=== PATIENT | female | born 1990 | race Caucasian/White ===

== ENCOUNTER 2017-12-24 04:35 | Inpatient (IN) | payer MEDICAID ==
[2017-12-24] MEDS ORDERED: BUTORPHANOL 2 MG INJ IV (05:00)
[2017-12-24] MEDS ORDERED: CARBOPROST 250 MCG INJ IM ×2 (05:00→10:00)
[2017-12-24] MEDS ORDERED: LIDOCAINE 1% (MPF) 30 ML INJ INJ (05:00)
[2017-12-24] MEDS ORDERED: OXYTOCIN 30 UNITS/LR 500 ML IV ×2 (05:00→10:00)
[2017-12-24] MEDS ORDERED: IBUPROFEN 600 MG TAB PO (05:00)
[2017-12-24] MEDS ORDERED: MISOPROSTOL 200 MCG TAB PR ×2 (05:00→10:00)
[2017-12-24] MEDS: LACTATED RINGER'S 1,000 ML IV* ×2 (05:26→06:43)
[2017-12-24] MEDS: AMPICILLIN 2 GM/NS (PMX) 100 ML IV (05:26)
[2017-12-24 05:34] LABS: ADD MAN DIFF? NO
[2017-12-24 05:49] LABS: WHITE BLOOD COUNT 11.3 10^3/ul (4.8-10.8)
[2017-12-24 05:49] LABS: BASOPHILS % 0.2 % (0.0-2.0); EOSINOPHILS # 0.1 10^3/ul (0.0-0.5); HEMATOCRIT 37.2 % (37.0-47.0); HEMOGLOBIN 12.7 g/dl (12.0-16.0); LYMPHOCYTES # 2.8 10^3/ul (0.8-2.9); LYMPHOCYTES % 24.6 % (15.0-51.0); MEAN CORPUSCULAR HEMOGLOBIN 28.9 pg (29.0-33.0); MEAN CORPUSCULAR HGB CONC 34.1 g/dl (32.0-37.0); MEAN CORPUSCULAR VOLUME 84.7 fl (82.0-101.0); MEAN PLATELET VOLUME 11.4 fl (7.4-10.4); MONOCYTE # 0.9 10^3/ul (0.3-0.9); MONOCYTES % 7.9 % (0.0-11.0); NEUTROPHIL # 7.4 10^3/ul (1.6-7.5); NEUTROPHILS % 65.9 % (39.0-77.0); PLATELET COUNT 311 10^3/UL (140-415); RED BLOOD COUNT 4.39 10^6/ul (4.20-5.40); RED CELL DISTRIBUTION WIDTH 13.3 % (11.5-14.5)
[2017-12-24 05:59] LABS: PROTIME 12.2 Sec (11.9-14.9)
[2017-12-24] MEDS ORDERED: FENTAnyl 2MCG/ML-ROPIV 0.2% 100 ML (06:18)
[2017-12-24 06:31] LABS: HEPATITIS B SURFACE ANTIGEN NEGATIVE (NEGATIVE)
[2017-12-24 07:19] LABS: PARTIAL THROMBOPLASTIN TIME 28.9 Sec (23.0-35.0)
[2017-12-24] MEDS ORDERED: AMPICILLIN 1 GM/NS (PMX) 50 ML IV (09:00)
[2017-12-24] MEDS: METHYLERGONOVINE 0.2 MG INJ IM (09:31)
[2017-12-24] MEDS: OXYTOCIN 30 UNITS/LR 500 ML IV ×2 (09:41→09:52)
[2017-12-24] MEDS ORDERED: DEXTROSE 5%-LR 1,000 ML IV (09:47)
[2017-12-24] MEDS ORDERED: LACTATED RINGER'S 1,000 ML IV* (09:47)
[2017-12-24] MEDS ORDERED: ZOLPIDEM 5 MG TAB PO (10:00)
[2017-12-24] MEDS ORDERED: OXYCODONE/ASPIRIN (4.88/325) TAB PO (10:00)
[2017-12-24] MEDS ORDERED: DIPHENHYDRAMINE 50 MG INJ IV (10:00)
[2017-12-24] MEDS ORDERED: SENNA/DOCUSATE NA (8.6MG/50MG) TAB PO (10:00)
[2017-12-24] MEDS ORDERED: METHYLERGONOVINE 0.2 MG INJ IM (10:00)
[2017-12-24] MEDS ORDERED: ONDANSETRON 4 MG INJ IV (10:00)
[2017-12-24] MEDS ORDERED: DIBUCAINE 1% 30 GM OINT PR (10:00)
[2017-12-24] MEDS: IBUPROFEN 600 MG TAB PO ×3 (12:39→23:53)
[2017-12-24] MEDS: BENZOCAINE 20% 56 ML SPRAY TOP (12:39)
[2017-12-24] MEDS: LANOLIN 7 GM TUBE TOP (12:40)
[2017-12-24] MEDS: WITCH HAZEL/GLYCERIN PAD PR (12:40)
[2017-12-24 15:16] LABS: RAPID PLASMA REAGIN NONREACTIVE (NR)
[2017-12-25] MEDS: IBUPROFEN 600 MG TAB PO ×4 (00:30→17:53)
[2017-12-25 08:49] LABS: ADD MAN DIFF? NO
[2017-12-25 08:52] LABS: BASOPHILS % 0.2 % (0.0-2.0); EOSINOPHILS % 0.2 % (0.0-7.0); HEMATOCRIT 33.7 % (37.0-47.0); HEMOGLOBIN 11.4 g/dl (12.0-16.0); LYMPHOCYTES # 2.4 10^3/ul (0.8-2.9); LYMPHOCYTES % 18.2 % (15.0-51.0); MEAN CORPUSCULAR HEMOGLOBIN 29.1 pg (29.0-33.0); MEAN CORPUSCULAR HGB CONC 33.8 g/dl (32.0-37.0); MEAN PLATELET VOLUME 10.9 fl (7.4-10.4); MONOCYTE # 0.9 10^3/ul (0.3-0.9); MONOCYTES % 7.2 % (0.0-11.0); NEUTROPHIL # 9.5 10^3/ul (1.6-7.5); NEUTROPHILS % 73.8 % (39.0-77.0); PLATELET COUNT 273 10^3/UL (140-415); RED BLOOD COUNT 3.92 10^6/ul (4.20-5.40); RED CELL DISTRIBUTION WIDTH 13.7 % (11.5-14.5)
[2017-12-25 08:52] LABS: WHITE BLOOD COUNT 12.9 10^3/ul (4.8-10.8)
[2017-12-26] MEDS: IBUPROFEN 600 MG TAB PO ×3 (00:18→12:39)
[2017-12-26] MEDS ORDERED: MEASLES,MUMPS,RUBELLA VACCINE INJ SC* (09:00)
[2017-12-26] MEDS: ACETAMINOPHEN 325 MG TAB PO (09:52)
[2017-12-26] MEDS: DIPHTH/TET/ACEL PERTUSS (ADULT) 0.5 ML VIAL IM* (11:18)
== END 2017-12-26 13:15 | disposition home or self-care (01) | DRG 775 ==
LOC: OBT 04:35 → L-D 04:35 → PP1 12-25 20:46 → L-D 05:11 → OBT 04:48 → L-D 04:48 → PP1 12:19
PROVIDERS: Obstetrics & Gynecology
PROC: 10D07Z6 Extraction of Products of Conception, Vacuum, Via Natural or Artificial Opening (ICD-10-PCS; principal; 2017-12-24)
PROC: 3E033VJ Introduction of Other Hormone into Peripheral Vein, Percutaneous Approach (ICD-10-PCS; 2017-12-24)
DX: O24.429 Gestational diabetes mellitus in childbirth, unspecified control (principal); O76 Abnormality in fetal heart rate and rhythm complicating labor and delivery; Z3A.38 38 weeks gestation of pregnancy; Z37.0 Single live birth
CPT/HCPCS: 62319; 85025; 85610; 85730; 86592; 86850; 86900; 86901; 87340; 90715; 99464

== ENCOUNTER 2018-03-12 10:26 | Observation (INO) | payer MEDICAID ==
[~2018-03-12 10:26] MED LIST: CEFAZOLIN 1 GM INJ; GLYCOPYRROLATE 0.4 MG INJ; KETOROLAC 30 MG INJ; METOCLOPRAMIDE 10 MG INJ; NEOSTIGMINE 3 MG/3 ML SYRINGE; PROPOFOL 200 MG INJ; ROCURONIUM 50 MG INJ
[2018-03-12] MEDS ORDERED: ROCURONIUM 50 MG INJ (11:49)
[2018-03-12] MEDS ORDERED: ONDANSETRON 4 MG INJ (11:49)
[2018-03-12] MEDS ORDERED: LIDOCAINE 100 MG SYRINGE (11:49)
[2018-03-12] MEDS ORDERED: FENTAnyl 50 MCG/ML VIAL ×2 (11:49→13:35)
[2018-03-12] MEDS ORDERED: DEXAMETHASONE 4 MG/ML 1 ML INJ (11:49)
[2018-03-12] MEDS ORDERED: PROPOFOL 100 ML (11:49)
[2018-03-12] MEDS ORDERED: MEPERIDINE 25 MG INJ IV (12:00)
[2018-03-12] MEDS ORDERED: LABETALOL HCL 20MG INJ IV (12:00)
[2018-03-12] MEDS ORDERED: HYDROmorphONE 1 MG/5 ML IV SYRINGE IV (12:00)
[2018-03-12] MEDS ORDERED: FENTAnyl 50 MCG/ML VIAL IV ×2 (12:00)
[2018-03-12] MEDS ORDERED: ONDANSETRON 4 MG INJ IV (12:00)
[2018-03-12] MEDS ORDERED: METOCLOPRAMIDE 10 MG INJ IV (12:00)
[2018-03-12] MEDS ORDERED: hydrALAzine 20 MG INJ IV (12:00)
[2018-03-12] MEDS ORDERED: BUPIVACAINE 0.5%/EPI (SDV) 30 ML INJ (12:10)
[2018-03-12] MEDS ORDERED: SUGAMMADEX SODIUM 200 MG/2 ML VIAL IV (12:18)
[2018-03-12] MEDS ORDERED: MIDAZOLAM 1 MG/ML 2 ML INJ (12:42)
[2018-03-12] MEDS: BUPIVACAINE 0.5%/EPI (SDV) 30 ML INJ INJ (13:00)
[2018-03-12] MEDS ORDERED: KETOROLAC 30 MG INJ (13:31)
[2018-03-12] MEDS ORDERED: METOCLOPRAMIDE 10 MG INJ (13:31)
[2018-03-12] MEDS ORDERED: BUTORPHANOL 2 MG INJ IV (14:30)
[2018-03-12] MEDS: HYDROmorphONE 1 MG/5 ML IV SYRINGE IV (14:55)
[2018-03-12] MEDS: OXYCODONE/ACETAMINOPHEN (10/325) TAB PO (20:11)
== END 2018-03-13 10:50 | disposition home or self-care (01) ==
LOC: SDS 10:26 → MS1 16:15 → SDS 16:08 → REC 16:08 → MS1 17:12
DX: Z30.2 Encounter for sterilization (principal)
CPT/HCPCS: 58600; 84703; 87086; 88302